=== PATIENT | male | born 1955 | race Caucasian/White ===

== ENCOUNTER 2018-06-21 20:35 | Inpatient (IN) | payer SELFPAY ==
[2018-06-21 21:21] LABS: BASO # 0.1 K/uL (0.0-0.2); BASO % 0.4 % (0.0-2.0); HEMOGLOBIN 14.9 g/dL (12.0-18.0); LYMPH # 2.3 K/uL (1.0-4.3); LYMPH % 11.5 % (20.0-40.0); MEAN CELL VOLUME 83.1 fL (80.0-94.0); MEAN CORPUSCULAR HGB CONC 32.5 g/dL (33.0-37.0); MEAN PLATELET VOLUME 8.8 fL (7.2-11.7); MONO # 1.2 K/uL (0.0-0.8); MONO % 5.7 % (0.0-10.0); NEUT # 16.7 K/uL (1.8-7.0); NEUT % 82.4 % (50.0-75.0); RBC 5.53 Mil/uL (4.40-5.90); RED CELL DISTRIBUTION WIDTH 15.2 % (11.5-14.5); WHITE BLOOD COUNT 20.3 K/uL (4.8-10.8)
[2018-06-21 21:32] LABS: ALB/GLOB RATIO 1.4 (1.0-2.1); ALT/SGPT 33 U/L (21-72); AMYLASE 79 U/L (30-110); AST/SGOT 25 U/L (17-59); BLOOD UREA NITROGEN 14 mg/dL (9-20); GFR NON-AFRICAN AMERICAN > 60; LIPASE 63 U/L (23-300)
--- NOTE | 2018-06-21 21:43 | C.PDOC ---
History Of Present Illness 62 year old male presents to the emergency department with complaints of chest pain, stomach pain, and vomiting since last night. Patient states that all of his symptoms began at the same time. He states that his abdominal pain resolved after going to sleep at 2AM but his chest pain has been intermittent since then. Patient denies taking any medications for pain. Patient denies fever, chills, SOB, syncope, diarrhea, urinary symptoms. He confirms recent travel to [place], he returned from there in March 2018. Time Seen by Provider: 06/21/18 20:47 Chief Complaint (Nursing): Chest Pain History Per: Patient History/Exam Limitations: no limitations Onset/Duration Of Symptoms: Days (1), Intermittent Episodes Current Symptoms Are (Timing): Still Present Quality: "Pain" Past Medical History Reviewed: Historical Data, Nursing Documentation, Vital Signs Vital Signs: Last Vital Signs Temp 98.6 F 06/21/18 20:41 Pulse 84 06/21/18 20:41 Resp 16 06/21/18 20:41 BP Pulse Ox - Medical History PMH: Hypercholesterolemia, Hypothyroidism Surgical History: No Surg Hx Family History: States: No Known Family Hx - Social History Hx Alcohol Use: Yes Hx Substance Use: No - Immunization History Hx Influenza Vaccination: No Hx Pneumococcal Vaccination: No Review Of Systems Except As Marked, All Systems Reviewed And Found Negative. Constitutional: Negative for: Fever, Chills Cardiovascular: Positive for: Chest Pain Gastrointestinal: Positive for: Vomiting, Abdominal Pain. Negative for: Diarrhea Physical Exam - Physical Exam Appears: Non-toxic, No Acute Distress Skin: Normal Color, Warm, Dry Head: Atraumatic, Normacephalic Eye(s): bilateral: Normal Inspection, PERRL, EOMI Nose: Normal Oral Mucosa: Moist Neck: Normal, Supple Chest: Symmetrical, No Tenderness Cardiovascular: Rhythm Regular, No Murmur Respiratory: Normal Breath Sounds, No Rales, No Rhonchi, No Wheezing Gastrointestinal/Abdominal: Soft, No Tenderness, No Guarding, No Rebound Extremity: Normal ROM Neurological/Psych: Oriented x3, Normal Speech, Normal Cognition ED Course And Treatment - Laboratory Results Result Diagrams: 06/22/18 09:08 06/22/18 09:08 Lab Results: APTT 34 SECONDS (21-34) 06/21/18 21:16 Total Bilirubin 0.7 mg/dL (0.2-1.3) 06/21/18 21:16 AST 25 U/L (17-59) 06/21/18 21:16 ALT 33 U/L (21-72) 06/21/18 21:16 Alkaline Phosphatase 96 U/L (38-126) 06/21/18 21:16 Total Protein 8.5 g/dL (6.3-8.3) H 06/21/18 21:16 Albumin 5.0 g/dL (3.5-5.0) 06/21/18 21:16 Globulin 3.5 gm/dL (2.2-3.9) 06/21/18 21:16 Albumin/Globulin Ratio 1.4 (1.0-2.1) 06/21/18 21:16 Amylase 79 U/L (30-110) 06/21/18 21:16 Lipase 63 U/L (23-300) 06/21/18 21:16 Interpretation Of ECG: Normal sinus rhythm at 71bpm, normal intervals, incomplete right BBB. Medical Decision Making Medical Decision Making: Plan: EKG Chemistry CBC PTT Urinalysis Blood cultures ordered. D dimer negative, cxr interprerted by me as ?fluffy infiltrates. UA pending. 22:30 Results of w/u d/w patient. Plan admit for further evaluation and management. Patient agreeable w/POC. Case d/w Dr. Quinones. Advises to order CTA chest to rule out pneumonia. Disposition Counseled Patient/Family Regarding: Studies Performed, Diagnosis - Disposition Disposition: HOSPITALIZED Disposition Time: 22:30 Condition: STABLE - Clinical Impression Clinical Impression: Chest pain, Leukocytosis, Abdominal pain, Vomiting - Scribe Statement The provider has reviewed the documentation as recorded by the Scribe (Elia Barber) Provider Attestation: All medical record entries made by the Scribe were at my direction and personally dictated by me. I have reviewed the chart and agree that the record accurately reflects my personal performance of the history, physical exam, medical decision making, and the department course for this patient. I have also personally directed, reviewed, and agree with the discharge instructions and disposition.
[2018-06-21] MEDS ORDERED: Sodium Chloride 0.9% 1,000 ML ONE (21:55)
[2018-06-21] MEDS ORDERED: Iodixanol 320 MG/ML 100 ML BOTTLE IV ONE (22:47)
[2018-06-21 23:58] LABS: SQUAMOUS EPITHIAL < 1 /hpf (0-5); URINE BACTERIA RARE (<OCC); URINE BILIRUBIN NEGATIVE (NEGATIVE); URINE BLOOD NEGATIVE (NEGATIVE); URINE CLARITY Clear (Clear); URINE COLOR Yellow (YELLOW); URINE GLUCOSE (UA) NORMAL (Normal); URINE LEUKOCYTE ESTERASE NEG Leu/uL (Negative); URINE PROTEIN NEGATIVE (NEGATIVE); URINE UROBILINOGEN NORMAL mg/dL (0.2-1.0)
--- NOTE | 2018-06-22 01:14 | CP.PCM.HP ---
<Stevo Shields - Last Filed: 06/22/18 01:04> History of Present Illness - History of Present Illness History of Present Illness: PGY-1 History and Physical [address]. Quinones Patient is a 62 year old [place] male with past medical history of HLD and hypothyroidism presenting to ED with worsening generalized abdominal pain associated with nausea/vomiting since last night. Patient states he has been unable to tolerate any PO intake, vomits it right back up, feels "heavy burping" and abdominal pain pointing to epigastric region primarily. No fevers/chills, headaches, dizziness, chest pain, palpitations, sob, cough, diarrhea/constipation. Patient traveled from [place], returned in 03/2018. No recent illnesses or sick contacts. 12 pt ROS reviewed and otherwise negative. PMHx: HLD, hypothyroidism PSHx: R testicular surgery Allergies: NKDA Home meds: simvastatin, synthroid Social Hx: smokes 2-7 cigarettes daily (currently on Chantix, heavier smoker before), drinks 2-3 shots of whiskey a few days per week, no illicit drug use. 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 Family Hx: Brother, at age 65 from cancer Present on Admission - Present on Admission Any Indicators Present on Admission: No Review of Systems - Review of Systems All systems: reviewed and no additional remarkable complaints except Review of Systems: as per HPI Past Patient History - Past Medical History & Family History Past Medical History?: Yes - Past Social History Smoking Status: Heavy Smoker > 10 Cigarettes Daily - CARDIAC Hx Hypercholesterolemia: Yes - ENDOCRINE/METABOLIC Hx Hypothyroidism: Yes - MUSCULOSKELETAL/RHEUMATOLOGICAL Hx Falls: No - PSYCHIATRIC Hx Substance Use: No - SURGICAL HISTORY Hx Surgeries: Yes Other/Comment: testicular sx - ANESTHESIA Hx Anesthesia: Yes Hx Anesthesia Reactions: No Hx Malignant Hyperthermia: No Has any member of the family had a problem w/ anesthesia?: No Meds Allergies/Adverse Reactions: Allergies Allergy/AdvReac Type Severity Reaction Status Date / Time No Known Allergies Allergy Unverified 06/21/18 20:44 Physical Exam - Constitutional Appears: Non-toxic, No Acute Distress - Head Exam Head Exam: ATRAUMATIC, NORMAL INSPECTION, NORMOCEPHALIC - Eye Exam Eye Exam: EOMI, Normal appearance, PERRL. absent: Scleral icterus Pupil Exam: NORMAL ACCOMODATION - ENT Exam ENT Exam: Mucous Membranes Moist, Normal Exam - Neck Exam Neck exam: Positive for: Full Rom, Normal Inspection. Negative for: Tenderness - Respiratory Exam Respiratory Exam: Clear to Auscultation Bilateral, NORMAL BREATHING PATTERN. absent: Accessory Muscle Use, Rales, Rhonchi, Wheezes, Respiratory Distress, Stridor - Cardiovascular Exam Cardiovascular Exam: REGULAR RHYTHM, +S1, +S2 - GI/Abdominal Exam GI & Abdominal Exam: Guarding (RLQ), Normal Bowel Sounds, Soft, Tenderness (RLQ). absent: Distended, Firm, Rebound, Rigid - Extremities Exam Extremities exam: Positive for: normal capillary refill, normal inspection, pedal pulses present. Negative for: calf tenderness, pedal edema - Back Exam Back exam: NORMAL INSPECTION - Neurological Exam Neurological exam: Alert, CN II-XII Intact, Normal Gait, Oriented x3 - Psychiatric Exam Psychiatric exam: Normal Affect, Normal Mood - Skin Skin Exam: Dry, Intact, Normal Color, Warm Results - Vital Signs Recent Vital Signs: Last Vital Signs Temp 99.2 F 06/21/18 23:23 Pulse 72 06/21/18 23:23 Resp 18 06/22/18 00:40 BP 133/73 06/21/18 23:23 Pulse Ox 98 06/22/18 00:40 - Labs Result Diagrams: 06/21/18 21:16 06/21/18 21:16 Labs: Laboratory Results - last 24 hr 06/21/18 06/21/18 06/21/18 00:10 21:16 21:16 WBC 20.3 H RBC 5.53 Hgb 14.9 Hct 46.0 MCV 83.1 MCH 27.0 MCHC 32.5 L RDW 15.2 H Plt Count 246 MPV 8.8 Neut % (Auto) 82.4 H Lymph % (Auto) 11.5 L [place] % (Auto) 5.7 Eos % (Auto) 0.0 Baso % (Auto) 0.4 Neut # (Auto) 16.7 H Lymph # (Auto) 2.3 [place] # (Auto) 1.2 H Eos # (Auto) 0.0 Baso # (Auto) 0.1 APTT 34 D-Dimer, Quantitative Sodium Potassium Chloride Carbon Dioxide Anion Gap BUN Creatinine Est GFR ( Amer) Est GFR (Non-Af Amer) Random Glucose Calcium Total Bilirubin AST ALT Alkaline Phosphatase Total Creatine Kinase Troponin I Total Protein Albumin Globulin Albumin/Globulin Ratio Amylase Lipase Urine Color Yellow Urine Clarity Clear Urine pH 8.0 Ur Specific [place] 1.009 Urine Protein Negative Urine Glucose (UA) Normal Urine Ketones Trace Urine Blood Negative Urine Nitrate Negative Urine Bilirubin Negative Urine Urobilinogen Normal Ur Leukocyte Esterase Neg Urine WBC (Auto) 1 Urine RBC (Auto) 1 Ur Squamous Epith Cells < 1 Urine Bacteria Rare 06/21/18 06/21/18 21:16 22:01 WBC RBC Hgb Hct MCV MCH MCHC RDW Plt Count MPV Neut % (Auto) Lymph % (Auto) [place] % (Auto) Eos % (Auto) Baso % (Auto) Neut # (Auto) Lymph # (Auto) [place] # (Auto) Eos # (Auto) Baso # (Auto) APTT D-Dimer, Quantitative 203 Sodium 138 Potassium 3.7 Chloride 95 L Carbon Dioxide 32 H Anion Gap 16 BUN 14 Creatinine 0.9 Est GFR ( Amer) > 60 Est GFR (Non-Af Amer) > 60 Random Glucose 150 H Calcium 10.0 Total Bilirubin 0.7 AST 25 ALT 33 Alkaline Phosphatase 96 Total Creatine Kinase 125 Troponin I < 0.0120 Total Protein 8.5 H Albumin 5.0 Globulin 3.5 Albumin/Globulin Ratio 1.4 Amylase 79 Lipase 63 Urine Color Urine Clarity Urine pH Ur Specific [place] Urine Protein Urine Glucose (UA) Urine Ketones Urine Blood Urine Nitrate Urine Bilirubin Urine Urobilinogen Ur Leukocyte Esterase Urine WBC (Auto) Urine RBC (Auto) Ur Squamous Epith Cells Urine Bacteria Assessment & Plan - Assessment and Plan (Free Text) Assessment: Acute appendicitis -Generalized abdominal pain, nausea/vomiting -RLQ TTP with guarding -CT abdomen/pelvis: acute appendicitis w/o perforation or abscess -General surgery (Dr. Jacquelyn Jackson) consulted -NPO -NS -rocephin -flagyl -zosyn -protonix Hx hypothyroidism -resume home synthroid Hx HLD -Crestor 5 mg PO HS PPx, Diet, Disposition -DVT ppx: scds -GI ppx: protonix -Diet: NPO Case discussed with Dr. Stacie Shields DO, PGY-1 <Wagner Quinones P - Last Filed: 06/23/18 08:18> Results - Vital Signs Recent Vital Signs: Last Vital Signs Temp 97.8 F 06/22/18 15:00 Pulse 66 06/22/18 16:00 Resp 20 06/22/18 15:00 BP 114/70 06/22/18 15:00 Pulse Ox 98 06/22/18 15:00 - Labs Result Diagrams: 06/22/18 09:08 06/22/18 09:08 Labs: Laboratory Results - last 24 hr 06/22/18 06/22/18 09:08 09:08 WBC 12.3 H RBC 4.89 Hgb 13.4 Hct 41.4 MCV 84.6 MCH 27.3 MCHC 32.3 L RDW 15.7 H Plt Count 227 MPV 8.8 Neut % (Auto) 67.8 Lymph % (Auto) 22.9 [place] % (Auto) 8.2 Eos % (Auto) 0.7 Baso % (Auto) 0.4 Neut # (Auto) 8.3 H Lymph # (Auto) 2.8 [place] # (Auto) 1.0 H Eos # (Auto) 0.1 Baso # (Auto) 0.1 Sodium 140 Potassium 4.7 Chloride 106 Carbon Dioxide 28 Anion Gap 11 BUN 14 Creatinine 0.8 Est GFR ( Amer) > 60 Est GFR (Non-Af Amer) > 60 Random Glucose 101 D Calcium 9.3 Phosphorus 2.7 Magnesium 2.3 Total Bilirubin 0.7 AST 22 ALT 21 D Alkaline Phosphatase 77 Total Protein 6.7 Albumin 4.0 Globulin 2.7 Albumin/Globulin Ratio 1.5 Attending/Attestation - Attestation I have personally seen and examined this patient.: Yes I have fully participated in the care of the patient.: Yes I have reviewed all pertinent clinical information: Yes Notes (Text): 06/23/18 08:17 Started with periumblelical pain, nausea, then tenderness localized to RLQ, CT confirmed uncomplicated acute appendicitis. IV abx, surgery consulted, npo.
[2018-06-22] MEDS: metroNIDAZOLE IV 500 mg/100 ml 500 MG/100 ML BAG IVPB SCH ×2 (02:10→09:33)
[2018-06-22] MEDS: Sodium Chloride 0.9% 1,000 ML IV SCH ×2 (02:10→12:20)
--- NOTE | 2018-06-22 03:27 | CP.PCM.CON ---
History of Present Illness - History of Present Illness History of Present Illness: General Surgery Dr. Jackson 62 y/o M w/ PMHx of HLD & hypothyroidism who presents to the ED c/o abd pain. Pt reports pain started Saturday (06/20) night. Pt admits to 2 separate pains, one in epigastrium and second localized to RLQ. Pain constant and non-radiating. Nothing makes pain better or worse. Pt denies having similar pain in the past. Pt admits to associated N/V, & diarrhea. Pt denies F/C, CP, SOB. Pt had full cardiac workup in to the ED for epigastric pain, including CTC PE protocol, which was negative. WBC 20.3. CTAP revealed acute appendicitis w/o perforation. PMHx: see above Meds: reviewed in chart NKDA PSHx: R testicle removal (trauma); denies colonoscopy/EGD SHx: 2-7 cigs per day, on Chantix (prior 15cis/day); 2-3 whiskey per week; denies drug use FHx: noncontributory Review of Systems - Review of Systems All systems: reviewed and no additional remarkable complaints except (see HPI) Past Patient History - Past Medical History & Family History Past Medical History?: Yes - Past Social History Smoking Status: Heavy Smoker > 10 Cigarettes Daily - CARDIAC Hx Hypercholesterolemia: Yes - ENDOCRINE/METABOLIC Hx Hypothyroidism: Yes - MUSCULOSKELETAL/RHEUMATOLOGICAL Hx Falls: No - PSYCHIATRIC Hx Substance Use: No - SURGICAL HISTORY Hx Surgeries: Yes Other/Comment: testicular sx - ANESTHESIA Hx Anesthesia: Yes Hx Anesthesia Reactions: No Hx Malignant Hyperthermia: No Has any member of the family had a problem w/ anesthesia?: No Meds Allergies/Adverse Reactions: Allergies Allergy/AdvReac Type Severity Reaction Status Date / Time No Known Allergies Allergy Unverified 06/21/18 20:44 - Medications Medications: Current Medications Ceftriaxone Sodium 1 gm/ (Sodium Chloride) 100 mls @ 100 mls/hr IVPB DAILY CUATE; Protocol Metronidazole (Flagyl) 500 mg in 100 mls @ 100 mls/hr IVPB Q8H CUATE; Protocol Last Admin: 06/22/18 02:10 Dose: 100 mls/hr Sodium Chloride (Sodium Chloride 0.9%) 1,000 mls @ 100 mls/hr IV .Q10H CUATE Last Admin: 06/22/18 02:10 Dose: 100 mls/hr Levothyroxine Sodium (Synthroid) 50 mcg PO DAILY@0630 [facility] Ondansetron HCl (Zofran Inj) 4 mg IVP Q4H PRN PRN Reason: Nausea/Vomiting Pantoprazole Sodium (Protonix Inj) 40 mg IVP DAILY [facility] Rosuvastatin Calcium (Crestor) 5 mg PO HS [facility] Physical Exam - Constitutional Appears: Non-toxic, No Acute Distress - Head Exam Head Exam: NORMAL INSPECTION - Eye Exam Eye Exam: Normal appearance - ENT Exam ENT Exam: Mucous Membranes Moist - Respiratory Exam Respiratory Exam: NORMAL BREATHING PATTERN. absent: Accessory Muscle Use, Respiratory Distress - Cardiovascular Exam Cardiovascular Exam: REGULAR RHYTHM. absent: Bradycardia, Tachycardia - GI/Abdominal Exam GI & Abdominal Exam: Soft, Tenderness (TTP RLQ). absent: Distended, Firm, Guarding, Rebound, Rigid - Expanded GI/Abdominal Exam Expanded Expanded GI & Abdominal Exam: Rovsing's Sign, McBurney's Point Tenderness. absent: Obturator Sign, Psoas Sign - Extremities Exam Extremities exam: Positive for: normal inspection - Neurological Exam Neurological exam: Alert, Oriented x3 - Psychiatric Exam Psychiatric exam: Normal Affect, Normal Mood - Skin Skin Exam: Dry, Intact, Normal Color, Warm Results - Vital Signs Recent Vital Signs: Last Vital Signs Temp 98.3 F 06/22/18 00:00 Pulse 74 06/22/18 00:00 Resp 18 06/22/18 00:40 BP 124/74 06/22/18 00:00 Pulse Ox 98 06/22/18 00:40 - Labs Result Diagrams: 06/21/18 21:16 06/21/18 21:16 Labs: Laboratory Results - last 24 hr 06/21/18 06/21/18 06/21/18 00:10 21:16 21:16 WBC 20.3 H RBC 5.53 Hgb 14.9 Hct 46.0 MCV 83.1 MCH 27.0 MCHC 32.5 L RDW 15.2 H Plt Count 246 MPV 8.8 Neut % (Auto) 82.4 H Lymph % (Auto) 11.5 L [place] % (Auto) 5.7 Eos % (Auto) 0.0 Baso % (Auto) 0.4 Neut # (Auto) 16.7 H Lymph # (Auto) 2.3 [place] # (Auto) 1.2 H Eos # (Auto) 0.0 Baso # (Auto) 0.1 APTT 34 D-Dimer, Quantitative Sodium Potassium Chloride Carbon Dioxide Anion Gap BUN Creatinine Est GFR ( Amer) Est GFR (Non-Af Amer) Random Glucose Calcium Total Bilirubin AST ALT Alkaline Phosphatase Total Creatine Kinase Troponin I Total Protein Albumin Globulin Albumin/Globulin Ratio Amylase Lipase Urine Color Yellow Urine Clarity Clear Urine pH 8.0 Ur Specific [place] 1.009 Urine Protein Negative Urine Glucose (UA) Normal Urine Ketones Trace Urine Blood Negative Urine Nitrate Negative Urine Bilirubin Negative Urine Urobilinogen Normal Ur Leukocyte Esterase Neg Urine WBC (Auto) 1 Urine RBC (Auto) 1 Ur Squamous Epith Cells < 1 Urine Bacteria Rare 06/21/18 06/21/18 21:16 22:01 WBC RBC Hgb Hct MCV MCH MCHC RDW Plt Count MPV Neut % (Auto) Lymph % (Auto) [place] % (Auto) Eos % (Auto) Baso % (Auto) Neut # (Auto) Lymph # (Auto) [place] # (Auto) Eos # (Auto) Baso # (Auto) APTT D-Dimer, Quantitative 203 Sodium 138 Potassium 3.7 Chloride 95 L Carbon Dioxide 32 H Anion Gap 16 BUN 14 Creatinine 0.9 Est GFR ( Amer) > 60 Est GFR (Non-Af Amer) > 60 Random Glucose 150 H Calcium 10.0 Total Bilirubin 0.7 AST 25 ALT 33 Alkaline Phosphatase 96 Total Creatine Kinase 125 Troponin I < 0.0120 Total Protein 8.5 H Albumin 5.0 Globulin 3.5 Albumin/Globulin Ratio 1.4 Amylase 79 Lipase 63 Urine Color Urine Clarity Urine pH Ur Specific [place] Urine Protein Urine Glucose (UA) Urine Ketones Urine Blood Urine Nitrate Urine Bilirubin Urine Urobilinogen Ur Leukocyte Esterase Urine WBC (Auto) Urine RBC (Auto) Ur Squamous Epith Cells Urine Bacteria - Imaging and Cardiology CT scan - chest Status: Image reviewed by me, Report reviewed by me (prelim) CT scan - abdomen Status: Image reviewed by me, Report reviewed by me (prelim) Assessment & Plan - Assessment and Plan (Free Text) Assessment: 62 y/o M w/ acute appendicitis Plan: - NPO/IVF - IV Abx - pain management - anti-emetic - consent obtained and placed in chart - OR@[id number] for lap appy - encourage OOB to chair/Amb Pt discussed w/ Dr. Manuel Farrell DO PGY3
[2018-06-22] MEDS ORDERED: Levothyroxine 50 MCG TAB PO SCH (06:30)
--- NOTE | 2018-06-22 08:05 | CP.PCM.PN ---
<Yousif Hennessy - Last Filed: 06/22/18 12:21> Subjective - Date & Time of Evaluation Date of Evaluation: 06/22/18 Time of Evaluation: 08:05 - Subjective Subjective: Progress Note for Hospitalist service Patient seen and examined at bedside. He states that his abdominal pain has improved significantly from yesterday. He denies vomiting, diarrhea, constipation, fevers, chills, chest pain, headache, dizziness, palpitations, sore throat, shortness of breath, change in vision or hearing, urinary discomfort or frequency, leg pain. Objective - Vital Signs/Intake and Output Vital Signs (last 24 hours): Temp Pulse Resp BP Pulse Ox 98.3 F 74 18 124/74 98 06/22/18 00:00 06/22/18 00:00 06/22/18 00:40 06/22/18 00:00 06/22/18 00:40 Intake and Output: 06/22/18 06/22/18 06:59 18:59 Intake Total 600 Output Total 300 Balance 300 - Medications Medications: Current Medications Ceftriaxone Sodium 1 gm/ (Sodium Chloride) 100 mls @ 100 mls/hr IVPB DAILY [facility]; Protocol Metronidazole (Flagyl) 500 mg in 100 mls @ 100 mls/hr IVPB Q8H [facility]; Protocol Last Admin: 06/22/18 02:10 Dose: 100 mls/hr Sodium Chloride (Sodium Chloride 0.9%) 1,000 mls @ 100 mls/hr IV .Q10H [facility] Last Admin: 06/22/18 02:10 Dose: 100 mls/hr Levothyroxine Sodium (Synthroid) 50 mcg PO DAILY@0630 [facility] Last Admin: 06/22/18 06:17 Dose: 50 mcg Ondansetron HCl (Zofran Inj) 4 mg IVP Q4H PRN PRN Reason: Nausea/Vomiting Pantoprazole Sodium (Protonix Inj) 40 mg IVP DAILY [facility] Rosuvastatin Calcium (Crestor) 5 mg PO HS [facility] - Labs Labs: 06/21/18 21:16 06/21/18 21:16 APTT 34 SECONDS (21-34) 06/21/18 21:16 - Constitutional Appears: Well, No Acute Distress - Head Exam Head Exam: ATRAUMATIC, NORMOCEPHALIC - Eye Exam Eye Exam: EOMI, PERRL - ENT Exam ENT Exam: Mucous Membranes Moist - Neck Exam Neck Exam: Full ROM. absent: Tenderness - Respiratory Exam Respiratory Exam: Clear to Ausculation Bilateral, NORMAL BREATHING PATTERN. absent: Rales, Rhonchi, Wheezes, Respiratory Distress, Stridor - Cardiovascular Exam Cardiovascular Exam: REGULAR RHYTHM, +S1, +S2. absent: Gallop, Rubs, Murmur - GI/Abdominal Exam GI & Abdominal Exam: Soft, Tenderness (Minimal tenderness in RLQ), Normal Bowel Sounds. absent: Distended, Firm, Guarding, Rigid - Extremities Exam Extremities Exam: Normal Capillary Refill. absent: Calf Tenderness, Pedal Edema - Back Exam Back Exam: absent: CVA tenderness (L), CVA tenderness (R) - Neurological Exam Neurological Exam: Alert, Awake, Oriented x3 - Psychiatric Exam Psychiatric exam: Normal Affect, Normal Mood - Skin Skin Exam: Dry, Intact, Warm Assessment and Plan - Assessment and Plan (Free Text) Assessment: 62 year old male with history of hyperlipidemia, hypothyroidism who presents for abdominal pain and vomiting. Imaging consistent with acute appendicitis, scheduled to go to OR for laparoscopic appendectomy today. Plan: Acute appendicitis -CT abdomen/pelvis: acute appendicitis w/o perforation or abscess -General surgery (Dr. Jacquelyn Jackson) consulted, scheduled for OR today at 10:30 -NPO prior to surgery -NS IV fluids -Rocephin 1g IV daily -Flagyl 500mg Q8 -Protonix -Zofran 4mg Q4 PRN History of hypothyroidism -Synthroid 50mcg PO daily History of hyperlipidemia -Crestor 5 mg PO HS History of tobacco use Patient was counseled regarding importance of smoking cessation. He states he has history of smoking heavily from age 15 to 50. Quit for 7 years and then restarted 2 years ago. Case discussed with Dr. Bryan Hennessy, PGY1 <Bryan Jackson - Last Filed: 06/22/18 15:18> Objective - Vital Signs/Intake and Output Vital Signs (last 24 hours): Temp Pulse Resp BP Pulse Ox 97.6 F 65 20 132/73 99 06/22/18 14:00 06/22/18 14:00 06/22/18 14:00 06/22/18 14:00 06/22/18 14:00 Intake and Output: 06/22/18 06/22/18 06:59 18:59 Intake Total 600 Output Total 300 Balance 300 - Medications Medications: Current Medications Ceftriaxone Sodium 1 gm/ (Sodium Chloride) 100 mls @ 100 mls/hr IVPB DAILY [facility]; Protocol Last Admin: 06/22/18 09:32 Dose: 100 mls/hr Metronidazole (Flagyl) 500 mg in 100 mls @ 100 mls/hr IVPB Q8H [facility]; Protocol Last Admin: 06/22/18 09:33 Dose: 100 mls/hr Ketorolac Tromethamine (Toradol) 30 mg IVP Q6 PRN PRN Reason: Pain, severe (8-10) Stop: 06/23/18 12:50 Levothyroxine Sodium (Synthroid) 50 mcg PO DAILY@0630 [facility] Last Admin: 06/22/18 06:17 Dose: 50 mcg Ondansetron HCl (Zofran Inj) 4 mg IVP Q4H PRN PRN Reason: Nausea/Vomiting Oxycodone/Acetaminophen (Percocet 5/325 Mg Tab) 1 tab PO Q4H PRN PRN Reason: Pain, moderate (4-7) Stop: 06/25/18 12:49 Pantoprazole Sodium (Protonix Inj) 40 mg IVP DAILY [facility] Last Admin: 06/22/18 09:20 Dose: 40 mg Rosuvastatin Calcium (Crestor) 5 mg PO HS [facility] - Labs Labs: 06/22/18 09:08 06/22/18 09:08 APTT 34 SECONDS (21-34) 06/21/18 21:16 Attending/Attestation - Attestation I have personally seen and examined this patient.: Yes I have fully participated in the care of the patient.: Yes I have reviewed all pertinent clinical information, including history, physical exam and plan: Yes Notes (Text): 06/22/18 15:18 Hospitalist Discharge Summary Patient was seen prior to and after his appendectomy. Time of Exam 2:15 PM: 62 year old male (PMHx: Hypothyroidism and HLD) presented with generalized abdominal pain assoiciated with nausea/vomiting. CT Abdomen/Pelvis revealed acute appendicitis without performation. He was taken to the OR on morning 06/22/18 and underwent Laporoscopic Appendectomy. I spoke with Wild Animal Caretaker Dr. Aviles, who stated that the procedure went well without any complications and from surgical standpoint patient was cleared for discharge, no further antibiotics were needed, and follow up with Marvni Jackson in 7 to 14 days will be needed. NO surgical john/sutures were needed for trocar insertion site incisions (3) as Dermabond was used. Please see Assessment and Plan below for further details. Please see the full medical record for full details of this patient's hospital course. Currently upon FULL ROS: NO chest pain NO Palpitations NO SOB/Cough/Wheezing NO abdominal pain but there is some soreness in the RLQ only if he presses on it NO n/v/d/c NO burning/pain with urination NO lightheadedness/dizziness NO new changes in vision NO new changes in hearing NO headache NO paresthesias Exam: General: AAOX3, NAD, Resting comfortably and in no pain HEENT: NCA, EOMI, PERRLA, NO pharyngeal erythema/exudate, NO cervical/supraclavicular/submandibular lymphadenopathy, NO thyromegaly, Nasal Turbinates are moist without edema/erythema Cardio: NS1 and NS2, NO M/R/G Resp: CTA B/L, NO R/R/W GI: BSx4, Soft, NT, ND, NO HSM, NO guarding/rebound tenderness: dermabond intact to the trocar insertion sites in the umbilicus, suprapubic area an the left lower quadrant area, no bruising noted or fluctuance/hardness palpated Ext: Pulses are strong and equal, Capillary Refill is 2 seconds, NO Edema Neuro: CN II through XII are grossly intact Assessment and Plan: 1). Acute appendicitis Status: Acute CT Abdomen/Pelvis: acute appendicitis w/o perforation or abscess General surgery (Dr. Jacquelyn Jackson) performed Laporoscopic Appendectomy morning 06/22/18 NPO prior to surgery NS IV fluids Rocephin 1g IV daily Flagyl 500mg Q8 Protonix 40 mg IV daily Zofran 4mg Q4 PRN 2). History of hypothyroidism Status: Chronic Synthroid 50mcg PO daily: states that he has enough of it at home 3). History of hyperlipidemia Status: Chronic Crestor 5 mg PO HS He is on Simvastatin at home and stated that he had enough of it 4). History of Nicotine Use Status: Chronic Patient was counseled regarding importance of smoking cessation. He states he has history of smoking heavily from age 15 to 50. Quit for 7 years and then restarted 2 years ago. He will be provided with [place] Quit Line information upon discharge. He stated that treatment for smoking cessation (such as Chantix) was too expensive for him. I explained to him that there were other less expensive option and that [place] Quit Line would be able to help him and he was encouraged to call. Discharge Instructions: The following instructions were explained to patient and copy will need to be p rovided to him upon discharge: 1). Call the office of General Surgeon Dr. Harper Jackson [phone] to schedule an appointment for follow up to take place in the next 7 days. You may use Extra Stength Tylenol 1 tablet by mouth every 6 hours as needed for pain. 2). Call the [place] Quit Line [phone] for resources in your area to help you stop smoking. Do this as it will help save your life and save you from a horrible . 3). NO heavy lifting and NO strenous exercise until cleared to do so by Dr. Harper Jackson. 4). You stated that you had enough of your medications Levothyroxine and Simvastatin. Please continue to take them as instructed by your Primary Care Physician. 5). You may also follow up with the [facility] located on [address] of [address] in [place], [place] by calling [phone] for an appointment. The physicians at this clinic can help you to coordinate your health care. 6). Please take care and be well. Bryan Jackson D.O.
[2018-06-22 09:21] LABS: BASO # 0.1 K/uL (0.0-0.2); BASO % 0.4 % (0.0-2.0); EOS # 0.1 K/uL (0.0-0.7); EOS % 0.7 % (0.0-4.0); HEMOGLOBIN 13.4 g/dL (12.0-18.0); LYMPH # 2.8 K/uL (1.0-4.3); LYMPH % 22.9 % (20.0-40.0); MEAN CELL VOLUME 84.6 fL (80.0-94.0); MEAN CORPUSCULAR HEMOGLOBIN 27.3 pg (27.0-31.0); MEAN CORPUSCULAR HGB CONC 32.3 g/dL (33.0-37.0); MEAN PLATELET VOLUME 8.8 fL (7.2-11.7); MONO % 8.2 % (0.0-10.0); NEUT # 8.3 K/uL (1.8-7.0); NEUT % 67.8 % (50.0-75.0); RBC 4.89 Mil/uL (4.40-5.90); RED CELL DISTRIBUTION WIDTH 15.7 % (11.5-14.5); WHITE BLOOD COUNT 12.3 K/uL (4.8-10.8)
[2018-06-22] MEDS ORDERED: ceFAZolin 1 gm in NS 1 GM/100 ML BAG IVPB ONE (10:05)
[2018-06-22 10:21] LABS: ALB/GLOB RATIO 1.5 (1.0-2.1); ALT/SGPT 21 U/L (21-72); AST/SGOT 22 U/L (17-59); BLOOD UREA NITROGEN 14 mg/dL (9-20); CALCIUM 9.3 mg/dl (8.6-10.4); GFR NON-AFRICAN AMERICAN > 60
[2018-06-22] MEDS ORDERED: Propofol 10 mg/ml Inj (20 ML) ONE (11:28)
[2018-06-22] MEDS ORDERED: Rocuronium 10 mg/ml (5 ml) ONE (11:28)
[2018-06-22] MEDS ORDERED: Succinylcholine Chloride 20 mg/ml Syr (5 ml) IV ONE ×2 (11:28→11:31)
[2018-06-22] MEDS ORDERED: Lactated Ringer's 1,000 ML IV ONE ×2 (11:30→12:30)
[2018-06-22] MEDS ORDERED: Midazolam 2 MG/2 ML VIAL ONE (11:30)
[2018-06-22] MEDS: Lidocaine/Epinephrine 1% 1:100000 10 ML IJ ONE ×2 (11:35→12:30)
[2018-06-22] MEDS: Bupivacaine 0.25% 20 ML INJ IJ ONE ×2 (11:35→12:29)
[2018-06-22] MEDS ORDERED: ePHEDrine 50 mg/ml Inj ONE (11:57)
[2018-06-22] MEDS ORDERED: HYDROmorphone 0.5 mg/0.5 ml ISec IVP PRN (12:26)
[2018-06-22] MEDS ORDERED: Neostigmine 1:1000 (1 mg/ml) Inj ONE (12:33)
[2018-06-22] MEDS ORDERED: Oxycodone/Acetaminophen 5/325 mg Tab PO PRN (12:48)
--- NOTE | 2018-06-22 12:48 | PCM.SURG1 ---
Surgeon's Initial Post Op Note - Surgeon's Notes Surgeon: Dr. Jackson Medical Logistics Specialist: Dr. Aviles Type of Anesthesia: General Endo Pre-Operative Diagnosis: Acute Appendicitis Operative Findings: see operative report Post-Operative Diagnosis: Same Operation Performed: Laparoscopic Appendectomy Specimen/Specimens Removed: appendix Estimated Blood Loss: EBL {In ML}: 20 Blood Products Given: N/A Drains Used: No Drains Post-Op Condition: Good Date of Surgery/Procedure: 06/22/18 Time of Surgery/Procedure: 12:48
[2018-06-22 14:01] VITALS: RESP 20
--- NOTE | 2018-06-22 14:14 | CT ---
Date of service: 06/22/2018 PROCEDURE: CT Chest with contrast (Pulmonary Angiogram) HISTORY: chest pain COMPARISON: None available. TECHNIQUE: Axial computed tomography images were obtained of the chest in the pulmonary arterial phase of enhancement. Coronal and sagittal reformatted images were created and reviewed. Intravenous contrast dose: 100 mL Visipaque 320 Radiation dose: Total exam DLP = 491.18 mGy-cm. This CT exam was performed using one or more of the following dose reduction techniques: Automated exposure control, adjustment of the mA and/or kV according to patient size, and/or use of iterative reconstruction technique. FINDINGS: PULMONARY ARTERIES: Unremarkable. No pulmonary embolism. AORTA: No acute findings. No thoracic aortic aneurysm. There is atherosclerotic calcification of the thoracic aorta. LUNGS: Centrilobular pulmonary emphysema, mild. No acute infiltrate. No pulmonary mass. PLEURAL SPACES: Unremarkable. No effusion or pneumothorax. HEART: Unremarkable. No cardiomegaly. No significant pericardial effusion. LYMPH NODES: No lymphadenopathy. BONES, CHEST WALL: Unremarkable. No fracture or destructive lesion OTHER FINDINGS: Two left upper pole renal cysts. Low-density right adrenal nodule consistent with adenoma. Please see report of abdominal/pelvic CT of the same date. IMPRESSION: No evidence of pulmonary embolism. No acute infiltrate. Mild centrilobular pulmonary emphysema. Minor findings as above. The preliminary findings for this examination were reported by [facility] Radiology at 12:35 a.m. on 06/22/2018. There is concurrence of this report with the preliminary findings.
--- NOTE | 2018-06-22 14:24 | CT ---
Date of service: 06/22/2018 PROCEDURE: CT Abdomen and Pelvis with contrast HISTORY: rlq pain COMPARISON: None. TECHNIQUE: Contrast dose: 100 mL Visipaque 320 Radiation dose: Total exam DLP = 759.99 mGy-cm. This CT exam was performed using one or more of the following dose reduction techniques: Automated exposure control, adjustment of the mA and/or kV according to patient size, and/or use of iterative reconstruction technique. FINDINGS: LOWER THORAX: See CT angio chest same date. LIVER: Unremarkable. No gross lesion or ductal dilatation. GALLBLADDER AND BILE DUCTS: Unremarkable. PANCREAS: Unremarkable. No gross lesion or ductal dilatation. SPLEEN: Unremarkable. ADRENALS: Low-density right adrenal mass, 1.6 cm. Attenuation measured on CT angiogram chest, prior to significant enhancement, demonstrates 12 Hounsfield units attenuation. Consistent with adrenal adenoma. Unremarkable left adrenal. KIDNEYS AND URETERS: Two left upper pole renal cysts, 4.3 cm and 2.6 cm. These both measure slightly high in attenuation, 21-29 Hounsfield units. Additional mid left renal cortical cyst, 1.4 cm. This measures 49 Hounsfield units. Mid left renal cortical cyst, 1.2 cm. No calculus or hydronephrosis. Recommend correlation with renal ultrasound examination. VASCULATURE: Unremarkable. No aortic aneurysm. There is atherosclerotic calcification of the abdominal aorta. BOWEL: No bowel obstruction. No abnormal bowel loops. APPENDIX: Distended appendix up to 11 mm diameter. There is moderate periappendiceal inflammatory change. Consistent with acute appendicitis. Small subcentimeter periappendiceal lymph nodes are identified. No periappendiceal abscess. No free air. PERITONEUM: Trace fluid in the pelvis. No pneumoperitoneum. LYMPH NODES: Unremarkable. No enlarged lymph nodes. BLADDER: Unremarkable. REPRODUCTIVE: Normal prostate BONES: No acute fracture. OTHER FINDINGS: None. IMPRESSION: Findings consistent with uncomplicated acute appendicitis. No abscess or free air. Multiple left renal cysts. Recommend correlation with renal ultrasound examination. No other acute abnormality. The preliminary findings for this examination were reported by [facility] Radiology at 12:39 a.m. on 06/22/2018. There is concurrence of this report with the preliminary findings.
--- NOTE | 2018-06-22 14:43 | CP.PCM.DIS ---
Provider - Provider Date of Admission: 06/21/18 22:30 Attending physician: Wagner Quinones MD Primary care physician: None Consults: 06/22/18 01:36 General Surgery Consult Routine Comment: Consulting Provider: Harper Jackson Consulting Physician: Harper Jackson Reason for Consult: acute appendicitis Time Spent in preparation of Discharge (in minutes): 40 Hospital Course - Lab Results Lab Results: Most Recent Lab Values WBC 12.3 K/uL (4.8-10.8) H 06/22/18 09:08 RBC 4.89 Mil/uL (4.40-5.90) 06/22/18 09:08 Hgb 13.4 g/dL (12.0-18.0) 06/22/18 09:08 Hct 41.4 % (35.0-51.0) 06/22/18 09:08 MCV 84.6 fL (80.0-94.0) 06/22/18 09:08 MCH 27.3 pg (27.0-31.0) 06/22/18 09:08 MCHC 32.3 g/dL (33.0-37.0) L 06/22/18 09:08 RDW 15.7 % (11.5-14.5) H 06/22/18 09:08 Plt Count 227 K/uL (130-400) 06/22/18 09:08 MPV 8.8 fL (7.2-11.7) 06/22/18 09:08 Neut % (Auto) 67.8 % (50.0-75.0) 06/22/18 09:08 Lymph % (Auto) 22.9 % (20.0-40.0) 06/22/18 09:08 [place] % (Auto) 8.2 % (0.0-10.0) 06/22/18 09:08 Eos % (Auto) 0.7 % (0.0-4.0) 06/22/18 09:08 Baso % (Auto) 0.4 % (0.0-2.0) 06/22/18 09:08 Neut # (Auto) 8.3 K/uL (1.8-7.0) H 06/22/18 09:08 Lymph # (Auto) 2.8 K/uL (1.0-4.3) 06/22/18 09:08 [place] # (Auto) 1.0 K/uL (0.0-0.8) H 06/22/18 09:08 Eos # (Auto) 0.1 K/uL (0.0-0.7) 06/22/18 09:08 Baso # (Auto) 0.1 K/uL (0.0-0.2) 06/22/18 09:08 APTT 34 SECONDS (21-34) 06/21/18 21:16 D-Dimer, Quantitative 203 ng/mlDDU (0-243) 06/21/18 22:01 Sodium 140 mmol/L (132-148) 06/22/18 09:08 Potassium 4.7 mmol/L (3.6-5.2) 06/22/18 09:08 Chloride 106 mmol/L (98-107) 06/22/18 09:08 Carbon Dioxide 28 mmol/L (22-30) 06/22/18 09:08 Anion Gap 11 (10-20) 06/22/18 09:08 BUN 14 mg/dL (9-20) 06/22/18 09:08 Creatinine 0.8 mg/dL (0.8-1.5) 06/22/18 09:08 Est GFR ( Amer) > 60 06/22/18 09:08 Est GFR (Non-Af Amer) > 60 06/22/18 09:08 Random Glucose 101 mg/dL (75-110) D 06/22/18 09:08 Calcium 9.3 mg/dl (8.6-10.4) 06/22/18 09:08 Phosphorus 2.7 mg/dL (2.5-4.5) 06/22/18 09:08 Magnesium 2.3 mg/dL (1.6-2.3) 06/22/18 09:08 Total Bilirubin 0.7 mg/dL (0.2-1.3) 06/22/18 09:08 AST 22 U/L (17-59) 06/22/18 09:08 ALT 21 U/L (21-72) D 06/22/18 09:08 Alkaline Phosphatase 77 U/L (38-126) 06/22/18 09:08 Total Creatine Kinase 125 U/L (55-170) 06/21/18 21:16 Troponin I < 0.0120 ng/mL (0.00-0.120) 06/21/18 21:16 Total Protein 6.7 g/dL (6.3-8.3) 06/22/18 09:08 Albumin 4.0 g/dL (3.5-5.0) 06/22/18 09:08 Globulin 2.7 gm/dL (2.2-3.9) 06/22/18 09:08 Albumin/Globulin Ratio 1.5 (1.0-2.1) 06/22/18 09:08 Amylase 79 U/L (30-110) 06/21/18 21:16 Lipase 63 U/L (23-300) 06/21/18 21:16 Urine Color Yellow (YELLOW) 06/21/18 00:10 Urine Clarity Clear (Clear) 06/21/18 00:10 Urine pH 8.0 (5.0-8.0) 06/21/18 00:10 Ur Specific [place] 1.009 (1.003-1.030) 06/21/18 00:10 Urine Protein Negative mg/dL (NEGATIVE) 06/21/18 00:10 Urine Glucose (UA) Normal mg/dL (Normal) 06/21/18 00:10 Urine Ketones Trace mg/dL (NEGATIVE) 06/21/18 00:10 Urine Blood Negative (NEGATIVE) 06/21/18 00:10 Urine Nitrate Negative (NEGATIVE) 06/21/18 00:10 Urine Bilirubin Negative (NEGATIVE) 06/21/18 00:10 Urine Urobilinogen Normal mg/dL (0.2-1.0) 06/21/18 00:10 Ur Leukocyte Esterase Neg [place]/uL (Negative) 06/21/18 00:10 Urine WBC (Auto) 1 /hpf (0-5) 06/21/18 00:10 Urine RBC (Auto) 1 /hpf (0-3) 06/21/18 00:10 Ur Squamous Epith Cells < 1 /hpf (0-5) 06/21/18 00:10 Urine Bacteria Rare (<OCC) 06/21/18 00:10 - Hospital Course Hospital Course: Hospitalist Discharge Summary Patient was seen prior to and after his appendectomy. Time of Exam 2:15 PM: 62 year old male (PMHx: Hypothyroidism and HLD) presented with generalized abdominal pain assoiciated with nausea/vomiting. CT Abdomen/Pelvis revealed acute appendicitis without performation. He was taken to the OR on morning 06/22/18 and underwent Laporoscopic Appendectomy. I spoke with Baler Operator Dr. Aviles, who stated that the procedure went well without any complications and from surgical standpoint patient was cleared for discharge, no further antibiotics were needed, and follow up with Marvin Jackson in 7 to 14 days will be needed. NO surgical john/sutures were needed for trocar in sertion site incisions (3) as Dermabond was used. Please see Assessment and Plan below for further details. Please see the full medical record for full details of this patient's hospital course. Currently upon FULL ROS: NO chest pain NO Palpitations NO SOB/Cough/Wheezing NO abdominal pain but there is some soreness in the RLQ only if he presses on it NO n/v/d/c NO burning/pain with urination NO lightheadedness/dizziness NO new changes in vision NO new changes in hearing NO headache NO paresthesias Exam: General: AAOX3, NAD, Resting comfortably and in no pain HEENT: NCA, EOMI, PERRLA, NO pharyngeal erythema/exudate, NO cervical/supraclavicular/submandibular lymphadenopathy, NO thyromegaly, Nasal Turbinates are moist without edema/erythema Cardio: NS1 and NS2, NO M/R/G Resp: CTA B/L, NO R/R/W GI: BSx4, Soft, NT, ND, NO HSM, NO guarding/rebound tenderness: dermabond intact to the trocar insertion sites in the umbilicus, suprapubic area an the left lower quadrant area, no bruising noted or fluctuance/hardness palpated Ext: Pulses are strong and equal, Capillary Refill is 2 seconds, NO Edema Neuro: CN II through XII are grossly intact Assessment and Plan: 1). Acute appendicitis Status: Acute CT Abdomen/Pelvis: acute appendicitis w/o perforation or abscess General surgery (Dr. Jacquelyn Jackson) performed Laporoscopic Appendectomy morning 06/22/18 NPO prior to surgery NS IV fluids Rocephin 1g IV daily Flagyl 500mg Q8 Protonix 40 mg IV daily Zofran 4mg Q4 PRN 2). History of hypothyroidism Status: Chronic Synthroid 50mcg PO daily: states that he has enough of it at home 3). History of hyperlipidemia Status: Chronic Crestor 5 mg PO HS He is on Simvastatin at home and stated that he had enough of it 4). History of Nicotine Use Status: Chronic Patient was counseled regarding importance of smoking cessation. He states he has history of smoking heavily from age 15 to 50. Quit for 7 years and then restarted 2 years ago. He will be provided with [place] Quit Line information upon discharge. He stated that treatment for smoking cessation (such as Chantix) was too expensive for him. I explained to him that there were other less expensive option and that [place] Quit Line would be able to help him and he was encouraged to call. Discharge Instructions: The following instructions were explained to patient and copy will need to be provided to him upon discharge: 1). Call the office of General Surgeon Dr. Harper Jackson [phone] to schedule an appointment for follow up to take place in the next 7 days. You may use Extra Stength Tylenol 1 tablet by mouth every 6 hours as needed for pain. 2). Call the [place] Quit Line [phone] for resources in your area to help you stop smoking. Do this as it will help save your life and save you from a horrible . 3). NO heavy lifting and NO strenous exercise until cleared to do so by Dr. Harper Jackson. 4). You stated that you had enough of your medications Levothyroxine and Simvastatin. Please continue to take them as instructed by your Primary Care Physician. 5). You may also follow up with the [facility] located on [address] of [address] in [place], [place] by calling [phone] for an appointment. The physicians at this clinic can help you to coordinate your health care. 6). Please take care and be well. Bryan Jackson D.O. Discharge Exam - Head Exam Head Exam: ATRAUMATIC, NORMOCEPHALIC Discharge Plan - Follow Up Plan Condition: GOOD Disposition: HOME/ ROUTINE Additional Instructions: The following instructions were explained to patient and copy will need to be provided to him upon discharge: 1). Call the office of General Surgeon Dr. Harper Jackson [phone] to schedule an appointment for follow up to take place in the next 7 days. 2). Call the [place] Quit Line [phone] for resources in your area to help you stop smoking. Do this as it will help save your life and save you from a horrible . 3). NO heavy lifting and NO strenous exercise until cleared to do so by Dr. Harper Jackson. 4). You stated that you had enough of your medications Levothyroxine and Simvastatin. Please continue to take them as instructed by your Primary Care Physician. 5). You may also follow up with the [facility] located on [address] of [address] in [place], [place] by calling [phone] for an appointment. The physicians at this clinic can help you to coordinate your health care. 6). Please take care and be well. Bryan Jackson D.O.
--- NOTE | 2018-06-22 14:54 | RAD ---
Date of service: 06/21/2018 HISTORY: chest pain COMPARISON: No prior. FINDINGS: LUNGS: No active pulmonary disease. PLEURA: No significant pleural effusion identified, no pneumothorax apparent. CARDIOVASCULAR: No aortic atherosclerotic calcification present. Normal cardiac size. No pulmonary vascular congestion. OSSEOUS STRUCTURES: No significant abnormalities. VISUALIZED UPPER ABDOMEN: Normal. OTHER FINDINGS: None. IMPRESSION: No active disease.
[2018-06-22 15:54] VITALS: BP 114/70; TEMP 97.8; O2SAT 98
[2018-06-22 17:41] VITALS: PULSE 66
--- NOTE | 2018-06-24 11:52 | CARD ---
APPROVED REPORT Date of service: 06/21/2018 EKG Measurement Heart [id number] <Conclusion> Normal sinus rhythm Incomplete right bundle branch block Borderline ECG
--- NOTE | 2018-06-27 12:43 | PCM.OP ---
Operative Report - Operative Report Date of Surgery/Procedure: 07/20/18 Time of Surgery/Procedure: 10:00 Surgeon: Harper Jackson MD Plastics Design Engineer: Juan Antonio Angulo DO (PGY 3 resident) Anesthesia/Sedation: See main Pre-Operative Diagnosis: See main Post-Operative Diagnosis: See main Indication for Surgery: See main Operative Findings: See main Procedure/Operation Description: ANESTHESIA: General endotracheal; 1% lidocaine + 0.25% Marcaine mix local anesthesia PRE-OPERATIVE DIAGNOSIS: Acute appendicitis; POST-OPERATIVE DIAGNOSIS: Acute appendicitis INDICATIONS FOR SURGERY: This is a 62 year old Male who presented to the emergency department earlier with 24 hours of abdominal pain and CT scan findings consistent with acute appendicitis and significant inflammation in right lower quadrant. Risks and benefits of laparoscopic possible open, appendectomy discussed as documented in clinical chart. All questions answered and informed consent signed prior to operation. OPERATIVE FINDINGS: Large inflamed appendix without perforation or gross spillage or purulent fluid. Scant fluid in pelvis; Appendix removed intact; Mesoappendiceal and cecal staple lines in tact without leak or bleeding at end of case. PROCEDURE PERFORMED: Laparoscopic Appendectomy Omental buttress of cecal staple line DETAILS OF PROCEDURE: The patient was given a preoperative dose of Zosyn 20 minutes prior to incision. SCD boots were placed for DVT prophylaxis. Secure straps placed above the knee s. Left arm tucked at patients side in neutral position. Right arm placed out on padded armboard. An orogastric tube placed in order to empty the stomach after the induction of general anesthesia. Upper body warmer placed. No reed catheter used as patient voided immediately prior to coming back to OR. Hair removal performed with shaver. The abdomen was prepped and draped in sterile fashion. Timeout was performed prior to incision. All skin incisions were made using an 11 blade scalpel after being pre- anesthetized with local anesthesia. In the supraumbilical midline, a 5mm circumlinear incision was made, abdominal wall elevated using towel clamp, and veress needle advanced until two clicks heard, intra-abdominal entry confirmed with opening pressures of 3mmHg, Abdomen insufflated to 15 mmHg pressure with CO2 and a 5mm port then inserted. A 30-degree viewing scope was then inserted and the abdomen was generally inspected and there was not found to be any signs or injury from initial entry. We then placed 2 additional working ports under direct vision, one 12 mm port in left lower quadrant, lateral to the rectus and inferior epigastric vessels; and another 5mm port in the suprapubic region. The abdomen was generally inspected; Small bowel and fold of treves adherent to lateral wall, taken down with blunt dissection to expose dilated tip of appendix. We then began sweeping the small intestine out of the pelvis and visualized the cecum tracing the taenia down to the appendix and terminal ileum with identifcation of the fat/fold of treves. A mesenteric window was created bluntly in between base of appendix at cecum and mesoappendix, and 45m linear stapler vascular white load was used to ligate and divide the appendiceal pedicle. The staple line was inspected and noted to be intact and without bleeding. Next a 45 mm blue load linear staple was used to divide the appendix at its base, being sure not to incorporate cecum. The specimen was placed in an Endocatch bag and removed from the 12mm trocar. The trocar reinserted and we next turned our attention to inspecting the staple line. The staple lines were carefully inspected and hemostasis confirmed. Omentum was then draped over the suture line and instruments and ports removed under direct vision. The abdomen was then desufflated. 0-vycrl suture in a figure of eight fashion x1 was used to close the lateral 12mm port site. The skin was closed with 4-0 monocryl and dermabond. All sponge, needle and instrument counts were correct. The patient was extubated in the operating room, and taken to the recovery room in stable condition. I was present for the entirety of the operation. Estimated Blood Loss: 10mL Complications: none Specimen: appendix Discharge & Condition: See main
== END 2018-06-22 16:32 | disposition home or self-care (01) | DRG 343 ==
LOC: C.ER 20:35 → C.9E 22:30 → C.5S 23:05
PROVIDERS: ADMIT Internal Medicine; ATTEND Internal Medicine
PROC: 0DTJ4ZZ Resection of Appendix, Percutaneous Endoscopic Approach (ICD-10-PCS; principal; 2018-06-21)
DX: K35.80 Unspecified acute appendicitis (principal); F17.210 Nicotine dependence, cigarettes, uncomplicated; E78.5 Hyperlipidemia, unspecified; E03.9 Hypothyroidism, unspecified